=== PATIENT | female | born 1995 | race Caucasian/White ===

== ENCOUNTER 2021-03-07 12:09 | Emergency (ER) | payer BC, MEDICAID ==
--- NOTE | 2021-03-07 13:35 | EDM.PDOC ---
ED HPI GENERAL MEDICAL PROBLEM - General Chief Complaint: General Stated Complaint: COLD Time Seen by Provider: 03/07/21 13:00 Source of Information: Reports: Patient History Limitations: Reports: No Limitations - History of Present Illness INITIAL COMMENTS - FREE TEXT/NARRATIVE: Patient presents to the ED for one day history of headache, sore throat, body aches and concern for covid 19. She is accompanied by her boyfriend that has similar symptoms and was exposed last week at work. She has taken dayquil and tylenol for this. no covid in the past and no vaccine. is a smoker, past meth use, clean 3 months. 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 Past Medical History Psychiatric History: Reports: Anxiety, Depression Social & Family History - Tobacco Use Tobacco Use Status *Q: Current Every Day Tobacco User Tobacco Use Within Last Twelve Months: Cigarettes, Vaping - Alcohol Use Alcohol Use History: No Alcohol Use in Last Twelve Months: No - Recreational Drug Use Recreational Drug Use: No Drug Use in Last 12 Months: Yes Recreational Drug Type: Reports: Methamphetamine Recreational Drug Use Comment: clean 3 months at the of her child ED ROS GENERAL - Review of Systems Review Of Systems: See Below Constitutional: Reports: Malaise, Weakness, Fatigue. Denies: Fever, Chills HEENT: Reports: Throat Pain. Denies: Eye Discharge, Eye Pain, Rhinitis Respiratory: Reports: No Symptoms. Denies: Shortness of Breath, Cough Cardiovascular: Reports: No Symptoms. Denies: Chest Pain GI/Abdominal: Reports: No Symptoms. Denies: Abdominal Pain, Anorexia, Diarrhea, Nausea, Vomiting : Reports: No Symptoms Musculoskeletal: Reports: Muscle Pain Skin: Reports: No Symptoms Neurological: Reports: No Symptoms ED EXAM, GENERAL - Physical Exam Exam: See Below Exam Limited By: No Limitations General Appearance: Alert, WD/WN, No Apparent Distress Eye Exam: Bilateral Eye: EOMI, Normal Inspection, PERRL Ears: Normal External Exam, Normal Canal, Hearing Grossly Normal, Normal TMs Nose: Normal Inspection, Normal Mucosa, No Blood Throat/Mouth: Normal Inspection, Normal Lips, Normal Voice, Other (minimal pharyngeal redness, no exudate) Head: Atraumatic Neck: Normal Inspection, Supple, Non-Tender, Full Range of Motion. No: Lymphadenopathy (L), Lymphadenopathy (R) Respiratory/Chest: No Respiratory Distress, Lungs Clear Cardiovascular: Normal Peripheral Pulses, Regular Rate, Rhythm, No Edema, No Rub GI/Abdominal: Normal Bowel Sounds, Soft Back Exam: CVA Tenderness (R) Extremities: Normal Inspection, Normal Range of Motion, No Pedal Edema Course - Orders/Labs/Meds Labs: Laboratory Tests 03/07/21 Range/Units 13:02 SARS CoV-2 RNA Rapid LOIS Negative (NEGATIVE) - Re-Assessments/Exams Free Text/Narrative Re-Assessment/Exam: only wants covid test, refuses other testing 03/07/21 14:18 Covid 19 test was negative today. You need to retest last this week when you are at day 3-5 of your symptoms. Check community resources as this should not be a ER or clinic visit. Go home and quarantine. STay hydrated, wear your mask at all times and use tylenol or motrin for your symptoms. Be cautious of using dayquil or nyquil type combinations as they contain tylenol in them also. Follow up with PCP. Do not break quarantine for the next 3-5 days until you have another negative covid result. Stay home. Departure - Departure Time of Disposition: 13:31 Disposition: Home, Self-Care 01 Condition: Fair Clinical Impression: Suspected COVID-19 virus infection - Discharge Information *PRESCRIPTION DRUG MONITORING PROGRAM REVIEWED*: Not Applicable *COPY OF PRESCRIPTION DRUG MONITORING REPORT IN PATIENT TRUE: Not Applicable Instructions: Airborne Precautions, [id number], 10 Things You Can Do to Manage Your COVID-19 Symptoms at Home - CDC (12/25/2019), COVID-19: Keep Your Baby Healthy and Safe - [facility] (07/20/2020), Symptoms of Coronavirus - [facility] (08/17/2020) Referrals: Jyoti Penn MD [Primary Care Provider] - Forms: ED Department Discharge, ED Return to Work/School Form Additional Instructions: Covid 19 test was negative today. You need to retest last this week when you are at day 3-5 of your symptoms. Check community resources as this should not be a ER or clinic visit. Go home and quarantine. STay hydrated, wear your mask at all times and use tylenol or motrin for your symptoms. Be cautious of using dayquil or nyquil type combinations as they contain tylenol in them also. Follow up with PCP. Do not break quarantine for the next 3-5 days until you have another negative covid result. Stay home.
== END 2021-03-07 13:45 | disposition home or self-care (01) ==
LOC: VM.ED 12:09
DX: M79.10 Myalgia, unspecified site (principal); Z20.822 Contact with and (suspected) exposure to COVID-19; Z72.0 Tobacco use
CPT/HCPCS: 99283; U0002

== ENCOUNTER 2023-03-15 10:25 | Emergency (ER) | payer OTHER, BC, MEDICAID ==
[2023-03-15] MEDS ORDERED: Ketorolac 30 MG/ML SDV IM ONE (10:39)
[2023-03-15] MEDS ORDERED: Orphenadrine 60 MG/2 ML Inj IM ONE (10:39)
[2023-03-15] MEDS ORDERED: predniSONE 20 MG Tab PO ONE (10:39)
== END 2023-03-15 12:20 | disposition home or self-care (01) ==
LOC: VM.ED 10:25
DX: M62.838 Other muscle spasm (principal); M54.2 Cervicalgia; Z79.899 Other long term (current) drug therapy; V49.40XA Driver injured in collision with unspecified motor vehicles in traffic accident, initial encounter
CPT/HCPCS: 72125; 96372; 99284; J1885; J2360; J7512

== ENCOUNTER 2023-08-17 09:25 | Emergency (ER) | payer MEDICAID, BC ==
[2023-08-17 09:39] LABS: BASOPHILS PERCENT AUTO 0.4 % (0.2-1.2); EOSINOPHILS ABSOLUTE AUTO 0.1 x10^3/uL (0.0-0.5); EOSINOPHILS PERCENT AUTO 0.8 % (0.0-4.0); HEMATOCRIT 47.3 % (33.0-47.0); HEMOGLOBIN 16.2 g/dL (12.0-16.0); IMMATURE GRAN ABSOLUTE AUTO 0.01 x10^3/uL (0.00-0.07); LYMPHOCYTES ABSOLUTE AUTO 1.3 x10^3/uL (1.0-4.8); LYMPHOCYTES PERCENT AUTO 17.5 % (25.0-50.0); MEAN CORPUSCULAR HEMOGLOBIN 28.9 pg (26.0-32.0); MEAN CORPUSCULAR HGB CONC 34.2 g/dL (32.0-36.0); MEAN CORPUSCULAR VOLUME 84.5 fL (78.0-93.0); MONOCYTES ABSOLUTE AUTO 0.7 x10^3/uL (0.0-0.8); MONOCYTES PERCENT AUTO 9.7 % (2.0-11.0); NEUTROPHILS ABSOLUTE AUTO 5.2 x10^3/uL (1.8-7.7); NEUTROPHILS PERCENT AUTO 71.5 % (50.0-80.0); PLATELET COUNT,PLT 235 x10^3/uL (130-400); WHITE BLOOD CELL COUNT,WBC 7.2 x10^3/uL (4.0-10.0)
[2023-08-17] MEDS: LORazepam 1 MG Tab PO ONE (09:42)
[2023-08-17 09:53] LABS: HCO3 VENOUS,POC 20 mmol/L (22-29); O2 SATURATION VENOUS,POC 61 %; PCO2 VENOUS,POC 23 mmHg (41-51); PH VENOUS,POC 7.55 pH (7.32-7.43); PO2 VENOUS,POC 27 mmHg
[2023-08-17 10:00] LABS: A/G RATIO 1.29; ALANINE AMINOTRANSFERASE,ALT 16 U/L (14-59); ALBUMIN 4.5 g/dL (3.4-5.0); ALKALINE PHOSPHATASE 65 U/L (46-116); ANION GAP 24.3 mmol/L (5-15); ASPARTATE AMNIOTRANSFERASE,AST 12 U/L (15-37); BILIRUBIN TOTAL 0.5 mg/dL (0.2-1.0); BLOOD UREA NITROGEN,BUN 10 mg/dL (7-18); CALCIUM 9.2 mg/dL (8.5-10.1); CARBON DIOXIDE,CO2 19 mmol/L (21-32); CHLORIDE,CL 101 mmol/L (98-107); ESTIMATED GFR 80 mL/min (>=60); GLUCOSE RANDOM 93 mg/dL (70-99); POTASSIUM,K 3.3 mmol/L (3.5-5.1); SODIUM,NA 141 mmol/L (136-145)
[2023-08-17 10:18] LABS: CORONAVIRUS COVID-19 NAA NEGATIVE (NEGATIVE); INFLUENZA A NAA NEGATIVE (NEGATIVE); INFLUENZA B NAA NEGATIVE (NEGATIVE); RESPIRATORY SYNCYTIAL VIR NAA POSITIVE (NEGATIVE)
== END 2023-08-17 10:45 | disposition home or self-care (01) ==
LOC: VM.ED 09:25
DX: J06.9 Acute upper respiratory infection, unspecified (principal); B97.4 Respiratory syncytial virus as the cause of diseases classified elsewhere; R06.4 Hyperventilation; K21.9 Gastro-esophageal reflux disease without esophagitis; Z79.899 Other long term (current) drug therapy
CPT/HCPCS: 0241U; 71045; 80053; 82803; 85025; 99285; A9270